=== PATIENT | male | born 1990 | race Caucasian/White ===

== ENCOUNTER 2017-11-13 18:04 | Emergency (ER) | payer BC ==
[~2017-11-13] VITALS: Ht 172.7 cm; Wt 94.3 kg
[~2017-11-13 18:04] MED LIST: AMBIEN5 MG PO; AMOXICILLIN500 MG PO; BACTRIM DS TAB1 EACH PO; CELEXA10 MG PO; FLEXERIL10 MG PO; NAPROSYN500 MG PO; NAPROXEN500 MG PO; OMEPRAZOLE20 MG PO
[2017-11-13] MEDS ORDERED: KEFLEX500 MG PO (18:25)
[2017-11-13] MEDS ORDERED: NORCO 5-325 TA1 EACH PO (19:30)
[2017-11-13] MEDS ORDERED: BACTRIM DS TAB1 EACH PO (19:30)
== END 2017-11-13 19:48 | disposition home or self-care (01) ==
LOC: ED 18:04
PROC: 0H9JXZZ Drainage of Left Upper Leg Skin, External Approach (ICD-10-PCS; principal; 2017-11-13)
DX: L02.416 Cutaneous abscess of left lower limb (principal); F17.200 Nicotine dependence, unspecified, uncomplicated; Z79.899 Other long term (current) drug therapy
CPT/HCPCS: 10060; 99283

== ENCOUNTER 2018-09-08 09:04 | Emergency (ER) | payer BC ==
[~2018-09-08] VITALS: Ht 172.7 cm; Wt 94.3 kg
[~2018-09-08 09:04] MED LIST changes: +KEFLEX500 MG PO; +NORCO 5-325 TA1 EACH PO
[2018-09-08] MEDS ORDERED: PEPTO-BISMOL262 M1 PO (09:25)
[2018-09-08] MEDS ORDERED: FLOMAX0.4 MG PO (11:51)
[2018-09-08] MEDS ORDERED: NORCO 5-325 TA1 EACH PO (11:51)
[2018-09-08] MEDS ORDERED: ZOFRAN4 MG PO (11:51)
== END 2018-09-08 12:10 | disposition home or self-care (01) ==
LOC: ED 09:04
DX: N13.2 Hydronephrosis with renal and ureteral calculous obstruction (principal); F17.200 Nicotine dependence, unspecified, uncomplicated
CPT/HCPCS: 74176; 80053; 81001; 85025; 96361; 96374; 96375; 99284-25; J1885; J2270; J2405; J7030